=== PATIENT | male | born 1995 | race Caucasian/White ===

== ENCOUNTER 2024-10-10 08:24 | Outpatient (CLI) | payer BC, SELFPAY ==
--- NOTE | ~2024-10-10 | XR_ITS ---
EXAM/ PROCEDURE: XR hip LT 2V w AP pelvis - 10/10/2024 8:35 CDT HISTORY: 28 years old Male with M25.552 - Pain in left hip COMPARISON: None available TECHNIQUE: Two view(s) FINDINGS/ IMPRESSION: There are no fractures or dislocations.Joint spaces are within normal limits. Reviewed, dictated and finalized at location A.
== END 2024-10-10 08:25 | disposition home or self-care (01) ==
LOC: MICIMG 08:25
PROVIDERS: PCP Family Medicine; Visit Provider Student in an Organized Health Care Education/Training Program
DX: M25.552 Pain in left hip (principal)
CPT/HCPCS: 73502